=== PATIENT | male | born 1970 | race American Indian/Alaskan Native ===

== ENCOUNTER 2019-07-07 09:11 | Emergency (ER) | payer MEDICARE ==
[2019-07-07 09:37] VITALS: BP 168/103
[2019-07-07 10:03] LABS: Basophils # (Auto) 0.1 K/mm3 (0.0-0.1); Basophils % (Auto) 1.5 % (0.0-1.8); Eosinophils # (Auto) 0.2 K/mm3 (0.0-0.4); Eosinophils % (Auto) 5.4 % (0.0-4.3); Hematocrit 35.7 % (35.5-45.6); Hemoglobin 11.9 gm/dl (11.8-15.2); Lymphocytes # (Auto) 1.1 K/mm3 (1.2-5.4); Lymphocytes % (Auto) 29.1 % (13.4-35.0); Mean Corpuscular HGB Conc 33 % (32-34); Mean Corpuscular Volume 94 fl (84-94); Monocytes # (Auto) 0.4 K/mm3 (0.0-0.8); Monocytes % (Auto) 10.2 % (0.0-7.3); Platelet Count 294 K/mm3 (140-440); Red Blood Count 3.79 M/mm3 (3.65-5.03)
[2019-07-07 10:23] LABS: Calcium 9.3 mg/dL (8.4-10.2)
--- NOTE | 2019-07-07 10:32 | XRay Report ---
CHEST 2 VIEWS INDICATION: Shortness of breath, missed dialysis 5 days. COMPARISON: 10/18/2018 report FINDINGS: Support devices: None. Heart: CABG changes are noted. Heart size is within normal limits. Lungs/pleura: Pulmonary venous structures are borderline. The lungs appear clear. No infiltrate, larg e pleural effusion or pneumothorax. No pneumothorax. Additional findings: None. IMPRESSION: Mild pulmonary venous congestion. Signer Name: Chapo Hui Jr, MD Signed: 07/07/2019 10:28 AM Workstation Name: [id number]
== END 2019-07-07 13:00 | disposition left against medical advice (07) ==
LOC: ED 09:11
DX: Z53.21 Procedure and treatment not carried out due to patient leaving prior to being seen by health care provider (principal)
CPT/HCPCS: 36415; 71046; 80048; 85025

== ENCOUNTER 2019-07-08 09:14 | Emergency (ER) | payer MEDICARE ==
[2019-07-08 10:59] LABS: Hemoglobin 11.8 gm/dl (11.8-15.2); Mean Corpuscular HGB Conc 34 % (32-34); Mean Corpuscular Volume 94 fl (84-94); Platelet Count 284 K/mm3 (140-440); Red Blood Count 3.72 M/mm3 (3.65-5.03); Red Cell Distribution Width 15.8 % (13.2-15.2)
[2019-07-08 11:33] LABS: Calcium 9.3 mg/dL (8.4-10.2)
--- NOTE | 2019-07-08 11:56 | Emergency Department Report ---
HPI - General Chief Complaint: Medical Clearance Time Seen by Provider: 07/08/19 11:50 - HPI HPI: 48-year-old -[place] male presents to the emergency department with the need for dialysis. The patient missed his last 3 dialysis sessions as he was out of town for a . He goes to the [facility] [place] and his roller staker is Dr. Jean. The patient says that he came back into town on Saturday and called the dialysis clinic telling them that he was about one hour away but he was told to come to the emergency department instead. He then says he tried to get dialyzed earlier on Saturday but says he sat there for 7 hours w aiting for a spot. When he showed up to get dialyzed today he was told that he needs to come to the emergency department since he has missed almost a week of dialysis. He denies any chest pain, shortness of breath or any significant edema. He also has a past medical history of previous CVA, coronary artery disease with surgery, seizures, hypertension. ED Past Medical Hx - Past Medical History Hx Hypertension: Yes Hx CVA: Yes (Left Side) Hx Renal Disease: Yes Hx Seizures: Yes - Surgical History Additional Surgical History: open heart bypass 04/03/19 - Social History Smoking Status: Never Smoker Substance Use Type: None - Medications Home Medications: Home Medications Medication Instructions Recorded Confirmed Last Taken Type Cyclobenzaprine [Flexeril 10 MG 10 mg PO TID PRN #30 tablet 10/04/18 10/19/18 10/16/18 Rx TAB] Famotidine [Pepcid] 10 mg PO BID #30 tablet 10/21/18 Unknown Rx ED Review of Systems ROS: Stated complaint: DIALYSIS Other details as noted in HPI Comment: All other systems reviewed and negative Constitutional: denies: chills, fever Eyes: denies: eye pain, vision change ENT: denies: ear pain, throat pain Respiratory: denies: cough, shortness of breath Cardiovascular: denies: chest pain, palpitations Gastrointestinal: denies: abdominal pain, vomiting Genitourinary: denies: dysuria, discharge Musculoskeletal: denies: back pain, arthralgia Skin: denies: rash, lesions Neurological: denies: headache, weakness Physical Exam - Physical Exam Vital Signs: Vital Signs 07/08/19 09:20 Temperature 97.9 F Pulse Rate 86 Respiratory 20 Rate Blood Pressure 190/114 [Left] O2 Sat by Pulse 98 Oximetry Physical Exam: GENERAL: The patient is well-developed well-nourished. HENT: Normocephalic. Atraumatic. Patient has moist mucous membranes. EYES: Extraocular motions are intact. NECK: Supple. Trachea is midline. CHEST/LUNGS: Clear to auscultation. There is no respiratory distress noted. HEART/CARDIOVASCULAR: Regular. There is no tachycardia. There is no murmur. ABDOMEN: Abdomen is soft, nontender. Patient has normal bowel sounds. There is no abdominal distention. SKIN: Skin is warm and dry. NEURO: The patient is awake, alert, and oriented. The patient is cooperative. The patient has no focal neurologic deficits. Normal speech. MUSCULOSKELETAL: There is no tenderness or deformity. There is no evidence of acute injury. ED Course Vital Signs 07/08/19 09:20 Temperature 97.9 F Pulse Rate 86 Respiratory 20 Rate Blood Pressure 190/114 [Left] O2 Sat by Pulse 98 Oximetry - Consultations Consultation #1: I spoke to the patient's roller staker, Dr. Jean, who was able to arrange for the patient to get dialysis at his normal dialysis clinic in [place] today at around 2:30 PM. 07/08/19 12:45 ED Medical Decision Making - Lab Data Result diagrams: 07/08/19 10:35 07/08/19 10:35 - Medical Decision Making Patient presents after missing about one week of dialysis, as the dialysis clinic would not provide dialysis without follow-up either here or with nephrology. He has no complaints of any chest pain, shortness of breath and does not appear in any acute distress. His labs have been mostly unremarkable. He does have some hypertension so he was given a dose of Catapres. I spoke with his roller staker who was able to arrange for the patient had dialysis done this afternoon at his [place] dialysis clinic. - Differential Diagnosis volume overload, CHF, hyperkalemia Critical Care Time: No Critical care attestation.: If time is entered above; I have spent that time in minutes in the direct care of this critically ill patient, excluding procedure time. ED Disposition Clinical Impression: End-stage renal disease needing dialysis Hypertension Qualifiers: Hypertension type: essential hypertension Qualified Code(s): I10 - Essential (primary) hypertension Disposition: DC-01 TO HOME OR SELFCARE Is pt being admited?: No Condition: Stable Instructions: Hypertension (ED), End-Stage Kidney Disease (ED) Additional Instructions: Please go over to your dialysis clinic. I would call them for the exact time but it appears that you have been set up for a dialysis session at around 2:30 PM this afternoon. Please follow-up with your primary care physician and roller staker over the next few days. Return to the emergency Department with any worsening of your symptoms or any acute distress. Referrals: PRIMARY CARE, [Primary Care Provider] - 2-3 Days Time of Disposition: 12:49
[2019-07-08] MEDS ORDERED: CATAPRES PO ONE (12:43)
[2019-07-08 13:08] VITALS: BP 174/107
== END 2019-07-08 13:07 | disposition home or self-care (01) ==
LOC: ED 09:14
DX: I12.0 Hypertensive chronic kidney disease with stage 5 chronic kidney disease or end stage renal disease (principal); N18.6 End stage renal disease; Z99.2 Dependence on renal dialysis; Z86.73 Personal history of transient ischemic attack (TIA), and cerebral infarction without residual deficits; Z98.890 Other specified postprocedural states; Z79.899 Other long term (current) drug therapy
CPT/HCPCS: 36415; 80048; 85027

== ENCOUNTER 2019-09-02 12:22 | Emergency (ER) | payer MEDICARE ==
--- NOTE | 2019-09-02 12:40 | Emergency Department Report ---
Blank Doc - Documentation Documentation: 49-year-old male that presents with mixed dialysis since last week. Was sent by PCP. This initial assessment/diagnostic orders/clinical plan/treatment(s) is/are subject to change based on patient's health status, clinical progression and re- assessment by fellow clinical providers in the ED. Further treatment and workup at subsequent clinical providers discretion. Patient/guardians urged not to elope from the ED as their condition may be serious if not clinically assessed and managed. Initial orders include: 1- Patient sent to [facility] for further evaluation and treatment 2- labs 3- UA
[2019-09-02 12:42] VITALS: BP 180/103
[2019-09-02 13:12] LABS: Basophils # (Auto) 0.1 K/mm3 (0.0-0.1); Basophils % (Auto) 1.3 % (0.0-1.8); Eosinophils # (Auto) 0.3 K/mm3 (0.0-0.4); Eosinophils % (Auto) 6.5 % (0.0-4.3); Hematocrit 36.4 % (35.5-45.6); Hemoglobin 12.2 gm/dl (11.8-15.2); Lymphocytes % (Auto) 21.4 % (13.4-35.0); Mean Corpuscular HGB Conc 34 % (32-34); Mean Corpuscular Volume 93 fl (84-94); Monocytes # (Auto) 0.5 K/mm3 (0.0-0.8); Platelet Count 305 K/mm3 (140-440); Red Blood Count 3.92 M/mm3 (3.65-5.03); Red Cell Distribution Width 17.1 % (13.2-15.2)
[2019-09-02 13:41] LABS: Calcium 9.3 mg/dL (8.4-10.2)
[2019-09-02 14:38] LABS: Bilirubin,Urine NEG (Negative); Blood,Urine NEG (Negative); Color,Urine Yellow (Yellow); Urobilinogen,Urine < 2.0 mg/dL (<2.0)
[2019-09-02 14:39] LABS: Protein,Urine >500 mg/dL (Negative)
--- NOTE | 2019-09-02 15:03 | Emergency Department Report ---
ED General Adult HPI - General Chief complaint: Medical Clearance Stated complaint: MISSED DIALYSIS Time Seen by Provider: 09/02/19 12:38 Source: patient Mode of arrival: Ambulatory Limitations: No Limitations - History of Present Illness Initial comments: Patient is a 49-year-old [place] male with a past medical history of end-stage renal disease who is on dialysis Saturday who is presenting after missing several dialysis sessions. Patient states his last dialysis was last because he was going out of town. Patient is back and he called his dialysis center to try to get his regular scheduled appointment reinstated but they told him he had to come to the emergency department. Patient states he has no shortness of breath fevers chills nausea vomiting diarrhea cough, congestion or chest pain. - Related Data Previous Rx's Medication Instructions Recorded Last Taken Type Cyclobenzaprine [Flexeril 10 MG 10 mg PO TID PRN #30 tablet 10/04/18 10/16/18 Rx TAB] Famotidine [Pepcid] 10 mg PO BID #30 tablet 10/21/18 Unknown Rx Allergies Allergy/AdvReac Type Severity Reaction Status Date / Time No Known Allergies Allergy Verified 07/08/19 09:18 ED Review of Systems ROS: Stated complaint: MISSED DIALYSIS Other details as noted in HPI Comment: All other systems reviewed and negative ED Past Medical Hx - Past Medical History Previous Medical History?: Yes Hx Hypertension: Yes Hx CVA: Yes (Left Side) Hx Renal Disease: Yes Hx Seizures: Yes - Surgical History Past Surgical History?: Yes Additional Surgical History: open heart bypass 04/03/19 - Social History Smoking Status: Never Smoker Substance Use Type: None - Medications Home Medications: Home Medications Medication Instructions Recorded Confirmed Last Taken Type Cyclobenzaprine [Flexeril 10 MG 10 mg PO TID PRN #30 tablet 10/04/18 10/19/18 10/16/18 Rx TAB] Famotidine [Pepcid] 10 mg PO BID #30 tablet 10/21/18 Unknown Rx ED Physical Exam - General Limitations: No Limitations General appearance: alert, in no apparent distress - Head Head exam: Present: atraumatic, normocephalic - Eye Eye exam: Present: normal appearance, PERRL, EOMI - ENT ENT exam: Present: mucous membranes moist - Neck Neck exam: Present: normal inspection. Absent: tenderness - Respiratory Respiratory exam: Present: normal lung sounds bilaterally. Absent: respiratory distress, wheezes, rales, rhonchi - Cardiovascular Cardiovascular Exam: Present: regular rate, normal rhythm. Absent: systolic murmur, diastolic murmur, rubs, gallop - GI/Abdominal GI/Abdominal exam: Present: soft, normal bowel sounds. Absent: distended, tenderness, guarding, rebound - Rectal Rectal exam: Present: deferred - Extremities Exam Extremities exam: Present: normal inspection - Back Exam Back exam: Present: normal inspection - Neurological Exam Neurological exam: Present: alert, oriented X3 - Psychiatric Psychiatric exam: Present: normal affect, normal mood - Skin Skin exam: Present: warm, dry, intact, normal color. Absent: rash ED Course Vital Signs 09/02/19 09/02/19 12:40 14:18 Temperature 97.8 F Pulse Rate 72 Respiratory 18 16 Rate Blood Pressure 180/103 O2 Sat by Pulse 98 Oximetry ED Medical Decision Making - Lab Data Result diagrams: 09/02/19 12:52 09/02/19 12:52 - Medical Decision Making Patient's employee benefits administrator is Dr. Tucker. Dr. Meza is covering for Dr Jean at this time. He stated that since the patient would likely have to wait until Saturday to get a spot at his regular scheduled dialysis center the patient's children get dialysis here and be discharged afterwards. Critical care attestation.: If time is entered above; I have spent that time in minutes in the direct care of this critically ill patient, excluding procedure time. ED Disposition Clinical Impression: ESRD (end stage renal disease) on dialysis Disposition: TO HOME OR SELFCARE Is pt being admited?: No Does the pt Need Aspirin: No Condition: Stable Time of Disposition: 15:02
== END 2019-09-02 15:24 | disposition home or self-care (01) ==
LOC: ED 12:22
DX: I12.0 Hypertensive chronic kidney disease with stage 5 chronic kidney disease or end stage renal disease (principal); N18.6 End stage renal disease; Z99.2 Dependence on renal dialysis; Z86.73 Personal history of transient ischemic attack (TIA), and cerebral infarction without residual deficits
CPT/HCPCS: 36415; 80053; 81001; 83735; 85025; 99283

== ENCOUNTER → 2019-10-25 | Emergency (ER) | payer MEDICARE ==
[~2019-10-25] MED LIST: ACETAMINOPHEN 325 MG TAB PO PRN; ONDANSETRON 4 MG/2 ML INJ IV PRN
--- NOTE | 2019-10-25 09:06 | XRay Report ---
CHEST 2 VIEWS INDICATION / CLINICAL INFORMATION: hypertension. COMPARISON: 07/07/2019 FINDINGS: SUPPORT DEVICES: None. HEART / MEDIASTINUM: Stable. LUNGS / PLEURA: Scattered calcified granulomas are again seen, mostly in the right lung. Lungs otherw ise remain clear. No pleural fluid. No pneumothorax. ADDITIONAL FINDINGS: No significant additional findings. IMPRESSION: No acute finding. No significant change. Signer Name: Catracho Macias MD Signed: 10/25/2019 9:02 AM Workstation Name: [id number]
[2019-10-25 09:08] LABS: Basophils % (Auto) 0.9 % (0.0-1.8); Eosinophils # (Auto) 0.3 K/mm3 (0.0-0.4); Eosinophils % (Auto) 5.1 % (0.0-4.3); Hematocrit 35.9 % (35.5-45.6); Hemoglobin 12.2 gm/dl (11.8-15.2); Lymphocytes % (Auto) 19.7 % (13.4-35.0); Mean Corpuscular HGB Conc 34 % (32-34); Mean Corpuscular Volume 95 fl (84-94); Monocytes # (Auto) 0.4 K/mm3 (0.0-0.8); Monocytes % (Auto) 7.8 % (0.0-7.3); Platelet Count 319 K/mm3 (140-440); Red Blood Count 3.77 M/mm3 (3.65-5.03); Red Cell Distribution Width 15.8 % (13.2-15.2)
[2019-10-25 09:27] LABS: Calcium 9.7 mg/dL (8.4-10.2)
--- NOTE | 2019-10-25 09:31 | Emergency Department Report ---
ED General Adult HPI - General Chief complaint: Medical Clearance Stated complaint: missed dialysis treatmenT Time Seen by Provider: 10/25/19 08:31 Source: patient Mode of arrival: Ambulatory Limitations: No Limitations - History of Present Illness Initial comments: Patient is 49 years old male with history of end-stage renal disease on hemodialysis. Patient presented to the ER stating that he missed his Saturday session because he was out of town. Patient stated that last dialysis was Saturday. Patient stated that he is having some shortness of breath. He stated that his dry weight is 93 and now his weight is 99.9. Patient denied any headache weakness, numbness or tingling sensation. Patient also denied any chest pain, fever, chills or cough. - Related Data Previous Rx's Medication Instructions Recorded Last Taken Type Cyclobenzaprine [Flexeril 10 MG 10 mg PO TID PRN #30 tablet 10/04/18 10/16/18 Rx TAB] Famotidine [Pepcid] 10 mg PO BID #30 tablet 10/21/18 Unknown Rx Allergies Allergy/AdvReac Type Severity Reaction Status Date / Time No Known Allergies Allergy Verified 07/08/19 09:18 ED Review of Systems ROS: Stated complaint: missed dialysis treatmenT Other details as noted in HPI Comment: All other systems reviewed and negative Constitutional: denies: chills, fever Respiratory: shortness of breath. denies: cough, SOB with exertion, SOB at rest, wheezing Cardiovascular: denies: chest pain, palpitations Gastrointestinal: denies: abdominal pain, nausea, vomiting Musculoskeletal: denies: back pain Neurological: denies: headache, weakness, numbness, paresthesias, confusion ED Past Medical Hx - Past Medical History Previous Medical History?: Yes Hx Hypertension: Yes Hx CVA: Yes (Left Side) Hx Renal Disease: Yes (HD M-W-F) Hx Seizures: Yes - Surgical History Past Surgical History?: Yes Additional Surgical History: open heart bypass 04/03/19, Left arm graft - Social History Smoking Status: Never Smoker Substance Use Type: None - Medications Home Medications: Home Medications Medication Instructions Recorded Confirmed Last Taken Type Cyclobenzaprine [Flexeril 10 MG 10 mg PO TID PRN #30 tablet 10/04/18 10/19/18 10/16/18 Rx TAB] Famotidine [Pepcid] 10 mg PO BID #30 tablet 10/21/18 Unknown Rx ED Physical Exam - General Limitations: No Limitations General appearance: alert, in no apparent distress - Head Head exam: Present: atraumatic, normocephalic, normal inspection - Eye Eye exam: Present: normal appearance - ENT ENT exam: Present: normal exam, normal orophraynx, mucous membranes moist - Neck Neck exam: Present: normal inspection, full ROM. Absent: tenderness, meningismus, lymphadenopathy, thyromegaly - Respiratory Respiratory exam: Present: normal lung sounds bilaterally - Cardiovascular Cardiovascular Exam: Present: regular rate, normal rhythm, normal heart sounds - GI/Abdominal GI/Abdominal exam: Present: soft, normal bowel sounds. Absent: distended, tenderness, guarding, rebound, rigid, organomegaly, mass, bruit, pulsatile mass, hernia - Extremities Exam Extremities exam: Present: normal inspection, full ROM, normal capillary refill. Absent: tenderness, pedal edema, joint swelling, calf tenderness - Back Exam Back exam: Present: normal inspection, full ROM. Absent: CVA tenderness (R), CVA tenderness (L) - Neurological Exam Neurological exam: Present: alert, oriented X3, CN II-XII intact - Psychiatric Psychiatric exam: Present: normal mood - Skin Skin exam: Present: warm, intact, normal color ED Course Vital Signs 10/25/19 10/25/19 10/25/19 08:23 09:26 09:31 Temperature 97.4 F L Pulse Rate 65 61 58 L Respiratory 18 14 22 Rate Blood Pressure 146/74 120/82 O2 Sat by Pulse 98 96 92 Oximetry ED Medical Decision Making - Lab Data Result diagrams: 10/25/19 08:47 10/25/19 08:47 - EKG Data -: EKG Interpreted by Mi EKG shows normal: sinus rhythm Rate: normal - EKG Data Interpretation: no acute changes - Radiology Data Radiology results: report reviewed Chest x-ray is unremarkable. - Medical Decision Making Patient is 49 years old male with history of end-stage renal disease on hemodialysis. Patient presented to the ER stating that he missed his Saturday session because he was out of town. Patient stated that last dialysis was Saturday. Patient stated that he is having some shortness of breath. He stated that his dry weight is 93 and now his weight is 99.9. Patient denied any headache weakness, numbness or tingling sensation. Patient also denied any chest pain, fever, chills or cough. Patient EKG is unremarkable. Chest x-ray is negative for acute finding. Patient labs reviewed and is unremarkable except for his chronic elevation of her creatinine. Patient will need dialysis secondary to volume overload and shortness of breath. I discussed the patient with Dr. Meza, hire car driver senior electronics engineer for Dr. Jean. He advised to admit the patient to hospitals for dialysis. I discussed the patient is Dr. Martinez, she advised to admit the patient to Dr. Phillip. Critical Care Time: Yes Critical care time in (mins) excluding proc time.: 30 Critical care attestation.: If time is entered above; I have spent that time in minutes in the direct care of this critically ill patient, excluding procedure time. ED Disposition Clinical Impression: End-stage renal disease needing dialysis, Shortness of breath Disposition: OP ADMIT IP TO THIS HOSP Is pt being admited?: Yes Condition: Stable
--- NOTE | 2019-10-25 10:46 | History and Physical Report ---
History of Present Illness Date of examination: 10/25/19 Date of admission: 10/25/18 Chief complaint: missed HD History of present illness: Patient is 49 years old male with history of end-stage renal disease on hemodialysis. Patient presented to the ER stating that he missed his Saturday session because he was out of town. Patient stated that last dialysis was . Patient stated that he is having some shortness of breath. He stated that his dry weight is 93 and now his weight is 99.9. Patient denied any headache weakness, numbness or tingling sensation. Patient also denied any chest pain, fever, chills or cough. Past History Past Medical History: ESRD, hypertension, stroke Past Surgical History: Other (dialysis access) Social history: Family history: hypertension Medications and Allergies Allergies Allergy/AdvReac Type Severity Reaction Status Date / Time No Known Allergies Allergy Verified 07/08/19 09:18 Home Medications Medication Instructions Recorded Confirmed Last Taken Type Cyclobenzaprine [Flexeril 10 MG 10 mg PO TID PRN #30 tablet 10/04/18 10/19/18 10/16/18 Rx TAB] Famotidine [Pepcid] 10 mg PO BID #30 tablet 10/21/18 Unknown Rx Active Meds: Active Medications Acetaminophen (Tylenol) 650 mg PO Q4H PRN PRN Reason: Pain MILD(1-3)/Fever >100.5/GALINDO Ondansetron HCl (Zofran) 4 mg IV Q8H PRN PRN Reason: Nausea And Vomiting Sodium Chloride (Sodium Chloride Flush Syringe 10 Ml) 10 ml IV BID [place] Sodium Chloride (Sodium Chloride Flush Syringe 10 Ml) 10 ml IV PRN PRN PRN Reason: LINE FLUSH Exam - Physical Exam Narrative exam: General appearance: Present: no acute distress, well-nourished, obese - EENT Eyes: Present: PERRL, EOM intact - Neck Neck: Present: supple, normal ROM - Respiratory Respiratory effort: normal, labored Respiratory: bilateral: diminished, rales, negative: rhonchi, wheezing - Cardiovascular Rhythm: regular Heart Sounds: Present: S1 & S2 - Extremities Extremities: no ischemia, pulses intact Peripheral Pulses: within normal limits - Abdominal General gastrointestinal: soft, non-tender, non-distended, normal bowel sounds - Integumentary Integumentary: Present: clear, warm - Psychiatric Psychiatric: appropriate mood/affect, cooperative - Neurologic Neurologic: CNII-XII intact, moves all extremities - Constitutional Vitals: Temp Pulse Resp BP Pulse Ox 97.4 F L 59 L 19 120/82 98 10/25/19 08:23 10/25/19 10:01 10/25/19 10:01 10/25/19 10:01 10/25/19 10:01 Results - Labs CBC & Chem 7: 10/25/19 08:47 10/25/19 08:47 Labs: Abnormal lab results 10/25/19 10/25/19 Range/Units 08:47 08:47 MCV 95 H (84-94) fl RDW 15.8 H (13.2-15.2) % [place] % (Auto) 7.8 H (0.0-7.3) % Eos % (Auto) 5.1 H (0.0-4.3) % Lymph # 1.0 L (1.2-5.4) K/mm3 BUN 55 H (9-20) mg/dL Creatinine 4.9 H (0.8-1.5) mg/dL Assessment and Plan --Acute hypoxic respiratory failure; secondary to fluid overload Oxygen, supportive care, hemodialysis per schedule --End-stage renal disease on hemodialysis; Per scheduled MWF, neurology following --Anemia of chronic kidney disease; Procrit during dialysis Closely monitor H&H and transfuse as needed --Obesity; BMI 32.3, weight reduction advised --DVT prophylaxis; heparin renal dose Closely monitor the patient Possible discharge in 1-2 days if stable Plan of care is reviewed with the patient
[2019-10-25 11:12] VITALS: BP 134/88
--- NOTE | 2019-10-30 18:34 | Event Note ---
Date: 10/25/19 Patient left AMA
== END | disposition left against medical advice (07) ==
LOC: ED 08:15
DX: J96.01 Acute respiratory failure with hypoxia (principal); I82.409 Acute embolism and thrombosis of unspecified deep veins of unspecified lower extremity; D64.9 Anemia, unspecified; E66.9 Obesity, unspecified; I12.0 Hypertensive chronic kidney disease with stage 5 chronic kidney disease or end stage renal disease; N18.6 End stage renal disease; Z99.2 Dependence on renal dialysis; Z86.73 Personal history of transient ischemic attack (TIA), and cerebral infarction without residual deficits; Z68.32 Body mass index [BMI] 32.0-32.9, adult; Z79.899 Other long term (current) drug therapy
CPT/HCPCS: 36415; 71046; 80048; 84100; 85025; 93005; 93010

== ENCOUNTER 2019-10-27 19:20 | Emergency (ER) | payer MEDICARE ==
--- NOTE | 2019-10-27 21:23 | Event Note ---
ED Screening Note ED Screening Note: 49 y/o male eSRD on dialysis missed one session and was advised to come to the ear for BMP before appointment tomorrow. Pt states that he feels good. no complaints only following orders to come in for dialysis. This initial assessment/diagnostic orders/clinical plan/treatment(s) is/are subject to change based on patients health status, clinical progression and re- assessment by fellow clinical providers in the ED. Further treatment and workup at subsequent clinical providers discretion. Patient/guardian urged not to elope from the ED as their condition may be serious if not clinically assessed and managed. Initial orders include: bmp
[2019-10-27 22:26] LABS: Calcium 9.2 mg/dL (8.4-10.2)
--- NOTE | 2019-10-28 01:53 | Emergency Department Report ---
HPI - General Chief Complaint: Medical Clearance Time Seen by Provider: 10/27/19 21:20 - HPI HPI: Room 10 The patient is a 49-year-old male presenting with a chief complaint of "needing medical clearance to have dialysis tomorrow." The patient states he has a history of end-stage renal disease and usually receives dialysis every Saturday. Patient states he last received dialysis approximately 6 days ago (10/21/2019). The patient is completely symptomatic states when he went to dialysis he was instructed to come to the emergency department for clearance. Patient denies complaints including shortness of breath Location: [See above] Duration: [See above] Quality: [See above] Severity: [See above] Timing: [See above] Context: [See above] Modifying factors: [See above] Associated signs and symptoms: [see above] ED Past Medical Hx - Past Medical History Previous Medical History?: Yes Hx Hypertension: Yes Hx CVA: Yes (Left Side) Hx Renal Disease: Yes (HD M-W-F) Hx Seizures: Yes - Surgical History Past Surgical History?: No Additional Surgical History: open heart bypass 04/03/19, Left arm graft - Family History Family history: no significant - Social History Smoking Status: Never Smoker Substance Use Type: None (denies illicit drug use) - Medications Home Medications: Home Medications Medication Instructions Recorded Confirmed Last Taken Type Cyclobenzaprine [Flexeril 10 MG 10 mg PO TID PRN #30 tablet 10/04/18 10/19/18 10/16/18 Rx TAB] Famotidine [Pepcid] 10 mg PO BID #30 tablet 10/21/18 Unknown Rx ED Review of Systems ROS: Stated complaint: MISSED DIAYLISIS Other details as noted in HPI Comment: All other systems reviewed and negative Constitutional: no symptoms reported Respiratory: denies: shortness of breath Physical Exam - Physical Exam Vital Signs: Vital Signs 10/27/19 21:20 Temperature 98.3 F Pulse Rate 78 Respiratory 18 Rate Blood Pressure 152/92 [Right] O2 Sat by Pulse 98 Oximetry Physical Exam: GENERAL: The patient is well-developed well-nourished male lying on stretcher not appearing to be in acute distress. [] HEENT: Normocephalic. Atraumatic. Extraocular motions are intact. Patient has moist mucous membranes. NECK: Supple. Trachea midline CHEST/LUNGS: Clear to auscultation. There is no respiratory distress noted. HEART/CARDIOVASCULAR: Regular. There is no tachycardia. There is no gallop rub or murmur. ABDOMEN: Abdomen is soft, nontender. Patient has normal bowel sounds. There is no abdominal distention. SKIN: There is no rash. There is no edema. There is no diaphoresis. NEURO: The patient is awake, alert, and oriented. The patient is cooperative. The patient has normal speech MUSCULOSKELETAL: There is no evidence of acute injury. ED Course Vital Signs 10/27/19 21:20 Temperature 98.3 F Pulse Rate 78 Respiratory 18 Rate Blood Pressure 152/92 [Right] O2 Sat by Pulse 98 Oximetry - Consultations Consultation #1: 10/28/19 01:49 Nephrology paged 10/28/19 01:[address] Tuttle- no discharge with copy of his labs to follow up in dialysis in the morning ED Medical Decision Making - Lab Data Result diagrams: 10/27/19 21:43 Laboratory Tests 10/27/19 21:43 Sodium 138 Potassium 3.5 L Chloride 102.8 Carbon Dioxide 20 L Anion Gap 19 BUN 52 H Creatinine 4.8 H Estimated GFR 16 BUN/Creatinine Ratio 11 Glucose 89 Calcium 9.2 - Differential Diagnosis ESRD Critical care attestation.: If time is entered above; I have spent that time in minutes in the direct care of this critically ill patient, excluding procedure time. ED Disposition Clinical Impression: ESRD (end stage renal disease) on dialysis Disposition: -01 TO HOME OR SELFCARE Is pt being admited?: No Does the pt Need Aspirin: No Condition: Stable Instructions: Chronic Kidney Disease (ED) Additional Instructions: Please go to her dialysis center in the morning for dialysis. Your being given a copy of your lab work to provide to your dialysis staff. Return to the emergency department should you develop worsening symptoms, inability to tolerate food or liquids, high fever or any other concerns Referrals: ORA MOREJON MD [Primary Care Provider] - 3-5 Days Time of Disposition: 01:59
[2019-10-28 02:15] VITALS: BP 169/100
== END 2019-10-28 02:05 | disposition home or self-care (01) ==
LOC: ED 19:20
DX: I12.0 Hypertensive chronic kidney disease with stage 5 chronic kidney disease or end stage renal disease (principal); N18.6 End stage renal disease; Z99.2 Dependence on renal dialysis; Z98.890 Other specified postprocedural states; Z79.899 Other long term (current) drug therapy
CPT/HCPCS: 36415; 80048